=== PATIENT | male | born 1985 | race Caucasian/White ===

== ENCOUNTER 2017-04-12 18:36 | Emergency (ER) | payer SELFPAY ==
[~2017-04-12] VITALS: Ht 180.3 cm; Wt 103.4 kg
[2017-04-12] VITALS (7 sets, daily range): BP systolic 166–258; BP diastolic 116–150; PULSE 73–87; RESP 18; TEMP 98.3; O2SAT 99–100
[~2017-04-12 18:36] MED LIST: CEPH500C3 PO; CHLO.12%30 SSP; DIAZ5 PO; HYDR-3580 PO; LISI20 PO; LISI40TA PO; NAPR500 PO; Z.0.NO CURRENT MEDS
--- NOTE | 2017-04-12 19:11 | PD ---
HPI Chief Complaint: Oral / Dental Pain or Problem Time Seen by Provider: 19:05 Travel History International Travel<30 days: No Contact w/Intl Traveler<30days: No Traveled to known affect area: No History of Present Illness HPI 31-year-old male presents to the emergency room for evaluation of dental pain for the past 2 hours. Patient was biting into a potato when he broke his tooth. He had immediate pain radiating the entire right side of his face. It is throbbing in nature. Worse with air. He has not taken anything for his symptoms. He reports significant pain that caused him so much distress that it made him vomit and cry. Patient came to the emergency room because he did not know what else to do. He cannot get into the dentist until the morning. Patient has history of hypertension but states after losing weight he has not needed to take his medication. PFSH Past Medical History Medical History: Denies Significant Hx Cancer: No Cardiovascular Problems: Yes (HTN) Endocrine: No Genitourinary: No Hypertension: Yes Immune Disorder: No Neurologic: No Psychiatric: Yes (just depression over current situation) Reproductive: No Respiratory: No Tetanus Vaccination: > 5 Years Influenza Vaccination: No Past Surgical History Pacemaker: No Other Surgery: Yes (Plate right face) Social History Alcohol Use: Yes (Weekends) Tobacco Use: Yes (1 PPD) Substance Use: No Allergies-Medications (Allergen,Severity, Reaction): Coded Allergies: No Known Allergies (Unverified , 04/12/17) Reported Meds & Prescriptions Reported Meds & Active Scripts Active Lortab (Hydrocodone-Acetaminophen) 5-325 Mg Tab 1 Tab PO Q6H PRN Lisinopril 10 Mg Tab 10 Mg PO DAILY Review of Systems Except as stated in HPI: all other systems reviewed are Neg Physical Exam Narrative GENERAL: Well-nourished, well-developed male in no acute distress. Afebrile. Ambulatory. SKIN: Focused skin assessment warm/dry. HEAD: Normocephalic. EYES: No scleral icterus. No injection or drainage. DENTAL: Mild decay throughout. No loose. No malocclusion. Tooth #4 is chipped. No surrounding erythema or drainage. NECK: Supple, trachea midline. No JVD or lymphadenopathy. CARDIOVASCULAR: Regular rate and rhythm without murmurs, gallops, or rubs. RESPIRATORY: Breath sounds equal bilaterally. No accessory muscle use. Data Data Last Documented VS Vital Signs Date Time Temp Pulse Resp B/P Pulse Ox O2 Delivery O2 Flow Rate FiO2 04/12/17 20:58 73 18 166/116 99 Room Air 04/12/17 18:38 98.3 Orders Acetamin-Hydrocod 325-5 Mg (Lynd 5-325 (04/12/17 19:15) Ondansetron Odt (Zofran Odt) (04/12/17 19:15) Clonidine (Catapres) (04/12/17 19:15) Electrocardiogram (04/12/17 19:49) Complete Blood Count With Diff (04/12/17 19:49) Comprehensive Metabolic Panel (04/12/17 19:49) Prothrombin Time / Inr (Pt) (04/12/17 19:49) Act Partial Throm Time (Ptt) (04/12/17 19:49) Iv Access Insert/Monitor (04/12/17 19:49) Oximetry (04/12/17 19:49) Sodium Chloride 0.9% Flush (Ns Flush) (04/12/17 20:00) Troponin I (04/12/17 19:49) Hydralazine Inj (Apresoline Inj) (04/12/17 20:00) Enalaprilat Inj (Vasotec Inj) (04/12/17 20:00) Ketorolac Inj (Toradol Inj) (04/12/17 20:15) Labs Laboratory Tests Test 04/12/17 04/12/17 20:05 20:49 White Blood Count 12.9 TH/MM3 Red Blood Count 5.36 MIL/MM3 Hemoglobin 16.2 GM/DL Hematocrit 47.1 % Mean Corpuscular Volume 87.9 FL Mean Corpuscular Hemoglobin 30.2 PG Mean Corpuscular Hemoglobin 34.3 % Concent Red Cell Distribution Width 12.7 % Platelet Count 251 TH/MM3 Mean Platelet Volume 8.9 FL Neutrophils (%) (Auto) 76.0 % Lymphocytes (%) (Auto) 14.8 % Monocytes (%) (Auto) 5.9 % Eosinophils (%) (Auto) 1.8 % Basophils (%) (Auto) 1.5 % Neutrophils # (Auto) 9.8 TH/MM3 Lymphocytes # (Auto) 1.9 TH/MM3 Monocytes # (Auto) 0.8 TH/MM3 Eosinophils # (Auto) 0.2 TH/MM3 Basophils # (Auto) 0.2 TH/MM3 CBC Comment DIFF FINAL Differential Comment Prothrombin Time 11.3 SEC Prothromb Time International 1.0 RATIO Ratio Activated Partial 30.3 SEC Thromboplast Time Sodium Level 139 MEQ/L Potassium Level 3.9 MEQ/L Chloride Level 103 MEQ/L Carbon Dioxide Level 30.6 MEQ/L Anion Gap 5 MEQ/L Blood Urea Nitrogen 9 MG/DL Creatinine 0.86 MG/DL Estimat Glomerular Filtration 102 ML/MIN Rate Random Glucose 107 MG/DL Calcium Level 9.3 MG/DL Total Bilirubin 0.4 MG/DL Aspartate Amino Transf 24 U/L (AST/SGOT) Alanine Aminotransferase 34 U/L (ALT/SGPT) Alkaline Phosphatase 98 U/L Troponin I LESS THAN 0.02 NG/ML Total Protein 7.6 GM/DL Albumin 3.8 GM/DL MDM Medical Decision Making Medical Screen Exam Complete: Yes Emergency Medical Condition: Yes Medical Record Reviewed: Yes Differential Diagnosis Toothache versus gingivitis versus fractured tooth versus dental abscess Narrative Course 31-year-old male presents to the emergency room for evaluation of extreme dental pain after fracturing his tooth just prior to arrival. Patient reports immediate, throbbing pain in her right face/jaw. He states the pain was so severe it caused him to vomit even cry. Patient is hypertensive at 258/150. He has history of hypertension but has not been taking his medication. He was given Lortab, Zofran, and clonidine for pain as this is likely contributing to his hypertension. Recheck was 218/129. Patient denies chest pain or headache. He was given Vasotec 1.25 mg IV and 30 mg Toradol IV. At this point hypertensive urgency workup was initiated. EKG shows sinus rhythm with a rate of 77, no ST changes. CBC shows leukocytosis of 12.9. CMP is unremarkable. Troponin negative. Physical exam reveals tooth #4 to be fractured. No evidence of acute infection. Patient will be discharged with prescription for Lortab and lisinopril. Told to follow up with primary care physician and dentist or return to the emergency room for worsening symptoms. He understands and agrees with plan. Diagnosis Primary Impression: Dentalgia Additional Impression: Asymptomatic hypertensive urgency Referrals: [facility]ist Patient Instructions: General Instructions, Toothache (ED) Additional Instructions: Rest and drink plenty of fluids. Take Lortab as directed, as needed for pain. Take lisinopril as directed. Follow up with a primary care physician for continuous monitoring and adjustment of medications. Follow-up with a dentist. Return to the emergency room for worsening symptoms. Scripts Hydrocodone-Acetaminophen (Lortab)5-325 Mg Tab1 Tab PO Q6H PRN (PAIN) #7 TAB Ref 0 Prov:Chato Chandler MD 04/12/17 Lisinopril 10 Mg Tab10 Mg PO DAILY #30 TAB Ref 0 Prov:Surendra Damon MD 04/12/17 Disposition: 01 DISCHARGE HOME Condition: Stable Sheree Bruce Apr 12, 2017 19:11
[2017-04-12] MEDS ORDERED: ONDANSETRON ODT 4 MG TAB PO ONE (19:15)
[2017-04-12] MEDS ORDERED: ACETAMINOPHEN/HYDROcodone 325 MG/5 MG TAB PO ONE (19:15)
[2017-04-12] MEDS ORDERED: cloNIDine HCL 0.2 MG TAB PO ONE (19:15)
[2017-04-12] MEDS ORDERED: SODIUM CHLORIDE 0.9% FLUSH 10 ML FLUSH IVF PRN (20:00)
[2017-04-12] MEDS ORDERED: ENALAPRILAT 1.25 MG/ML VIAL IV PUSH ONE (20:00)
[2017-04-12] MEDS ORDERED: hydrALAZINE HCL 20 MG/ML VIAL IV PUSH ONE (20:00)
[2017-04-12 20:11] LABS: AUTOMATED NEUTROPHIL # 9.8 TH/MM3 (1.8-7.7); BASOPHIL # 0.2 TH/MM3 (0-0.2); BASOPHIL % 1.5 % (0.0-2.0); EOSINOPHIL # 0.2 TH/MM3 (0-0.4); EOSINOPHIL % 1.8 % (0.0-4.0); HEMATOCRIT 47.1 % (39.0-51.0); HEMO FLAGS DIFF FINAL; LYMPH % 14.8 % (9.0-44.0); LYMPHOCYTE # 1.9 TH/MM3 (1.0-4.8); MEAN CELL VOLUME 87.9 FL (80.0-100.0); MEAN CORPUSCULAR HEMOGLOBIN 30.2 PG (27.0-34.0); MEAN CORPUSCULAR HGB CONC 34.3 % (32.0-36.0); MONO % 5.9 % (0.0-8.0); PLATELET COUNT 251 TH/MM3 (150-450); RED BLOOD COUNT 5.36 MIL/MM3 (4.50-5.90); RED CELL DISTRIBUTION WIDTH 12.7 % (11.6-17.2); WHITE BLOOD COUNT 12.9 TH/MM3 (4.0-11.0)
[2017-04-12] MEDS ORDERED: KETOROLAC TROMETHAMINE 30 MG/ML (IVP) VIAL IV PUSH ONE (20:15)
[2017-04-12 20:23] LABS: APTT (PATIENT) 30.3 SEC (24.3-30.1); PROTHROMBIN TIME - PATIENT 11.3 SEC (9.8-11.6)
[2017-04-12 21:05] LABS: CHLORIDE 103 MEQ/L (98-107); POTASSIUM 3.9 MEQ/L (3.5-5.1); SODIUM (NA) 139 MEQ/L (136-145)
[2017-04-12 21:08] LABS: ANION GAP 5 MEQ/L (5-15); BICARBONATE 30.6 MEQ/L (21.0-32.0); BLOOD UREA NITROGEN 9 MG/DL (7-18)
[2017-04-12] MEDS ORDERED: LISI10TA3 PO (21:08)
[2017-04-12] MEDS ORDERED: HYDR-3533 PO ×2 (21:08→21:10)
[2017-04-12 21:11] LABS: ALT (GPT) 34 U/L (12-78); AST (GOT) 24 U/L (15-37); GLOMERULAR FILTRATION RATE 102 ML/MIN (>89)
[2017-04-12 21:13] LABS: TOTAL BILIRUBIN ADULT 0.4 MG/DL (0.2-1.0)
[2017-04-12 21:14] LABS: ALKALINE PHOSPHATASE 98 U/L (45-117)
--- NOTE | 2017-04-13 12:20 | EKG ---
Date Performed: 04/12/2017 Time Performed: 20:10:08 PTAGE: 31 years EKG: Sinus rhythm Normal ECG Compared to prior tracing no significant change PREVIOUS TRACING : 09/08/2012 09.19 DOCTOR: Andriy Ann Interpretating Date/Time 04/13/2017 12:18:10
== END 2017-04-12 21:25 | disposition home or self-care (01) ==
LOC: PHEFT 18:36
DX: K08.89 Other specified disorders of teeth and supporting structures (principal); I16.0 Hypertensive urgency; F17.200 Nicotine dependence, unspecified, uncomplicated
CPT/HCPCS: 80053; 84484; 85025; 85610; 85730; 93005; 96374; 96375; 99284; J1885

== ENCOUNTER 2017-12-10 12:52 | Emergency (ER) | payer MEDICAID ==
[~2017-12-10] VITALS: Ht 180.3 cm; Wt 96.8 kg
[~2017-12-10 12:52] MED LIST changes: -CEPH500C3 PO; -CHLO.12%30 SSP; -DIAZ5 PO; +HYDR-3533 PO; -HYDR-3580 PO; +LISI10TA3 PO; -LISI20 PO; -LISI40TA PO; -NAPR500 PO; -Z.0.NO CURRENT MEDS
[2017-12-10 12:59] VITALS: BP 198/137; PULSE 109; RESP 16; TEMP 98.8; O2SAT 98
[2017-12-10] MEDS ORDERED: cloNIDine HCL 0.2 MG TAB PO ONE (13:15)
--- NOTE | 2017-12-10 13:26 | PD ---
HPI Chief Complaint: Skin Problem Time Seen by Provider: 13:06 Travel History International Travel<30 days: No Contact w/Intl Traveler<30days: No Traveled to known affect area: No History of Present Illness HPI 32-year-old male with history of hypertension presents for evaluation of a rash. Symptoms are yesterday. Initially the rash was itchy but now it is painful, burning. The rash is found on his right forearm, right mid back, right forehead, left arm, now noticing a similar rash on the toes of his left foot. 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 He denies any IV drug use, fevers or chills, night sweats, cough or congestion, abdominal pain. He is noted to be hypertensive, he ran out of his lisinopril one week ago. No other complaints. PFSH Past Medical History Cancer: No Cardiovascular Problems: Yes (HTN) Diminished Hearing: No Endocrine: No Gastrointestinal Disorders: No Genitourinary: No Hypertension: Yes Immune Disorder: No Implanted Vascular Access Dvce: No Neurologic: No Psychiatric: Yes (just depression over current situation) Reproductive: No Respiratory: No Past Surgical History Pacemaker: No Other Surgery: Yes (Plate right face) Social History Alcohol Use: Yes (Weekends) Tobacco Use: Yes (/2 PPD) Substance Use: No Allergies-Medications (Allergen,Severity, Reaction): Coded Allergies: No Known Allergies (Unverified Adverse Reaction, Unknown, 12/10/17) Reported Meds & Prescriptions Reported Meds & Active Scripts Active Lisinopril 20 Mg Tab 20 Mg PO DAILY Cetirizine (Cetirizine HCl) 10 Mg Tab 10 Mg PO DAILY 10 Days Triamcinolone Topical (Triamcinolone Acetonide) 0.1 % Oint 1 Applic TOPICAL BID 10 Days Lisinopril 10 Mg Tab 10 Mg PO DAILY Review of Systems Except as stated in HPI: all other systems reviewed are Neg Physical Exam Narrative GENERAL: Well-developed well-nourished male in no acute distress SKIN: Warm and dry. Vesicular lesions noted on the right mid abdomen/back, right forehead, left forearm, left foot. No pustules, no petechiae, no purpura , no hives HEAD: Atraumatic. Normocephalic. EYES: Pupils equal and round. No scleral icterus. No injection or drainage. ENT: No nasal bleeding or discharge. Mucous membranes pink and moist. NECK: Trachea midline. No JVD. CARDIOVASCULAR: Regular rate and rhythm. No murmur appreciated. RESPIRATORY: No accessory muscle use. Clear to auscultation. Breath sounds equal bilaterally. GASTROINTESTINAL: Abdomen soft, non-tender, nondistended. Hepatic and splenic margins not palpable. MUSCULOSKELETAL: No obvious deformities. No clubbing. No cyanosis. No edema. NEUROLOGICAL: Awake and alert. No obvious cranial nerve deficits. Motor grossly within normal limits. Normal speech. PSYCHIATRIC: Appropriate mood and affect; insight and judgment normal. Data Data Last Documented VS Vital Signs Date Time Temp Pulse Resp B/P (MAP) Pulse Ox O2 Delivery O2 Flow Rate FiO2 12/10/17 14:24 194/122 (146) 12/10/17 12:59 98.8 109 16 98 Orders Orders Clonidine (Catapres) (12/10/17 13:15) Ed Discharge Order (12/10/17 14:45) Lisinopril (Prinivil) (12/10/17 14:45) MDM Medical Decision Making Medical Screen Exam Complete: Yes Emergency Medical Condition: Yes Medical Record Reviewed: Yes Differential Diagnosis Allergic contact dermatitis, irritant contact dermatitis, shingles, bullous impetigo Narrative Course The patient's rash is most consistent with allergic contact dermatitis of uncertain etiology. Viral etiologies such as shingles was considered in the differential however the distribution is not consistent. My attending evaluated the rash as well and he agrees with plan of care. The patient will be treated with topical steroid cream and oral antihistamines. The patient was given a dose of clonidine with only mild improvement in his blood pressure, therefore he was given a dose of his rigor lisinopril. He'll be given a refill of his lisinopril, recommend that he checks his blood pressure on a regular basis and discussed the results of his blood pressure readings with his primary care physician. Diagnosis Primary Impression: Allergic contact dermatitis Additional Impression: Hypertension Additional Instructions: Medication as prescribed. Avoid scratching at the rash. Monitor blood pressure on a regular basis, keep a journal of these readings, follow-up with primary care physician in one to 2 weeks. Return for any emergent medical conditions. Med/Other Pt SpecificInfo: Prescription(s) given Scripts Lisinopril (Lisinopril) 20 Mg Tab 20 MG PO DAILY, #30 TAB 0 Refills Prov: Hermelindo Harrison MD 12/10/17 Cetirizine (Cetirizine) 10 Mg Tab 10 MG PO DAILY for Allergies for 10 Days, #10 TAB 0 Refills Prov: Hermelindo Harrison MD 12/10/17 Triamcinolone Topical (Triamcinolone Topical) 0.1 % Oint 1 APPLIC TOPICAL BID for Inflammation for 10 Days, GM 0 Refills Prov: Hermelindo Harrison MD 12/10/17 Disposition: 01 DISCHARGE HOME Condition: Stable Reji Ambrocio Dec 10, 2017 13:26
[2017-12-10] MEDS ORDERED: TRIAM.1%T TOPICAL (13:27)
[2017-12-10] MEDS ORDERED: LISI-515 PO (13:27)
[2017-12-10] MEDS ORDERED: CETI10 PO (13:27)
[2017-12-10 14:24] VITALS: BP 194/122
[2017-12-10] MEDS ORDERED: LISINOPRIL 20 MG TAB PO ONE (14:45)
== END 2017-12-10 15:02 | disposition home or self-care (01) ==
LOC: PHEFT 12:52
DX: L23.9 Allergic contact dermatitis, unspecified cause (principal); I10 Essential (primary) hypertension
CPT/HCPCS: 99284